=== PATIENT | male | born 1955 | race Caucasian/White ===

== ENCOUNTER 2023-07-08 12:18 | Emergency (ER) | payer OTHER ==
[~2023-07-08] VITALS: Ht 170.2 cm; Wt 73.5 kg
[2023-07-08 12:51] VITALS: BP_SYST 130; PULSE 88; RESP 20; TEMP 98.3; O2SAT 98
[2023-07-08] MEDS ORDERED: NACL 0.9% 1,000 ML IV ONE (14:15)
[2023-07-08 14:29] VITALS: TEMP 98.3
[2023-07-08 14:37] LABS: HEMATOCRIT 28.1 % (36-54); HEMOGLOBIN 8.3 g/dL (14.0-18.0); MEAN CORPUSCULAR HEMOGLOBIN 21 pg (27-31); MEAN CORPUSCULAR HGB CONC 30 % (32-36); MEAN CORPUSCULAR VOLUME 70 fL (79.0-98.0); PLATELET COUNT (AUTO) 524 K/uL (130-430); RED BLOOD CELL COUNT(AUTO) 4.04 MIL/uL (4.2-6.2); RED CELL DISTRIBUTION WIDTH 22.9 % (9.0-15.0); WHITE BLOOD COUNT (AUTO) 12.1 K/uL (4.8-10.8)
[2023-07-08 14:56] LABS: ANION GAP 7 (5-15); CALCIUM 7.9 mg/dL (8.4-11.0); CARBON DIOXIDE 27 mmol/L (23-29); CHLORIDE 99 mmol/L (98-107); GFR AFRICAN AMERICAN 124 mL/min (>90); GLUCOSE 104 mg/dL (74-106); SODIUM SERUM 133 mmol/L (136-145); UREA NITROGEN, BLOOD 11 mg/dL (8-21)
[2023-07-08 15:01] LABS: GFR NON AFRICAN-AMERICAN 102 mL/min (>90)
[2023-07-08 15:03] LABS: ANISOCYTOSIS 2+; BAND % (MANUAL) 1 % (0-6); BASOPHILS % (MANUAL) 0 % (0-2); EOSINOPHILS % (MANUAL) 2 % (0-7); HYPOCHROMASIA 1+; LYMPHOCYTES % (MANUAL) 9 % (20-46); MONOCYTES % (MANUAL) 2 % (0-11); PLATELET ESTIMATE INCREASED (ADEQUATE)
[2023-07-08 15:09] LABS: ALANINE AMINOTRANSFERASE 13 U/L (12-78); ALBUMIN 2.4 g/dL (3.4-4.8); ASPARTATE AMINOTRANSFERASE 51 U/L (10-37); FREE T4 (FREE THYROXINE) 0.8 ng/dL (0.6-1.6); LIPASE 30 U/L (73-393); THYROID STIMULATING HORMONE 5.09 uIu/mL (0.34-4.82); TOTAL BILIRUBIN 0.3 mg/dL (0.0-1.0); TOTAL PROTEIN, SERUM 6.6 g/dL (6.4-8.3)
[2023-07-08 16:17] VITALS: BP_SYST 159; PULSE 88; RESP 20; O2SAT 97
== END 2023-07-08 16:00 | disposition home or self-care (01) ==
LOC: SED 12:18
DX: R53.1 Weakness (principal); D50.9 Iron deficiency anemia, unspecified; E03.9 Hypothyroidism, unspecified; Z79.899 Other long term (current) drug therapy
CPT/HCPCS: 99284; 96360; 85027; 80053; 84439; 83690; 83735; 84443; 85007; 84484; 36415; 93005; J7030